=== PATIENT | male | born 1985 | race Caucasian/White ===

== ENCOUNTER 2016-11-14 10:15 | Emergency (ER) | payer SELFPAY ==
[2016-11-14 10:43] VITALS: BP 119/70
[2016-11-14 11:30] LABS: CHLORIDE,CL 102 mmol/L (101-111); SODIUM,NA 139 mmol/L (135-145)
[2016-11-14] MEDS ORDERED: Vancomycin 1.5 GM in Sodium Chloride 0.9% 500 ML IV ONE (11:30)
[2016-11-14] MEDS ORDERED: Sodium Chloride 0.9% 10 ML Syringe FLUSH PRN (11:43)
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
== END 2016-11-14 13:37 | disposition home or self-care (01) ==
LOC: DL.ED 10:15
DX: L03.116 Cellulitis of left lower limb (principal); F17.210 Nicotine dependence, cigarettes, uncomplicated
CPT/HCPCS: 36415; 73562; 80053; 83605; 85025; 87040; 87070; 87077; 96365; 96366; 99284; J3370; J7040; J7050; 99283